=== PATIENT | male | born 1945 ===

== ENCOUNTER → 2018-12-15 | Outpatient (CLI) | payer OTHER ==
[~2018-12-15] MED LIST: ALLER-TEC D 5-1 EACH PO; ARNUITY ELLIPT50 MCG; ASCO500 PO; ASPI325EC PO; COLE625 PO; FOLBIC RF TABL1 EACH; Fiber Tabs625 MG PO; GLUCOSAMINE CH1 EACH PO; GLUCOSAMINE1000 MG PO; HYDMOR2 PO; IBUP600; LIVALO2 MG PO; MAGNESIUM PO; MELO7.5 PO; NAPR500 PO; ONDA4 PO; PROBIOTIC 10 PO; PROBIOTIC1 EAC1; PROM12.5S PO; PSEU30; ROXICODONE5 MG PO; SILD50TA; TAMS.4ER PO; TRAM50 PO; TROSPIUM CHLORI20 MG PO; Zantac150 MG PO; [UNRECOGNIZED DRUG - OTHER]
== END | disposition home or self-care (01) ==
LOC: PLD 12:09 → LAB SHORT 12:09
DX: D36.17 Benign neoplasm of peripheral nerves and autonomic nervous system of trunk, unspecified (principal)
CPT/HCPCS: 88305

== ENCOUNTER 2019-04-29 09:21 | Emergency (ER) | payer OTHER ==
[~2019-04-29] VITALS: Ht 172.7 cm; Wt 86.2 kg
[2019-04-29 09:54] LABS: International Normalized Ratio 0.97; Prothrombin Time Results 10.3 Sec (9.7-11.5)
== END 2019-04-29 09:59 | disposition short-term general hospital (02) ==
LOC: ER 09:21
PROVIDERS: Emergency Medicine
DX: I21.19 ST elevation (STEMI) myocardial infarction involving other coronary artery of inferior wall (principal); Z87.891 Personal history of nicotine dependence; Z79.899 Other long term (current) drug therapy; Z79.891 Long term (current) use of opiate analgesic; E78.5 Hyperlipidemia, unspecified
CPT/HCPCS: 84484; 85610; 85730; 93005; 93010; 99285-25; J2997

== ENCOUNTER 2020-09-27 09:10 | Day surgery (SDC) | payer OTHER ==
[~2020-09-27] VITALS: Ht 175.3 cm; Wt 89.0 kg
[~2020-09-27 09:10] MED LIST changes: +ACID REDUCER PO; +ALLER-TEC PO; +ASPI81CH; +ASPI81CH PO; +Flomax0.4 MG PO; +GAS X PO; +Glucosamine Co1 EAC1 PO; +LIVALO4 MG PO; +METO25ER; +METO25ER PO; +NITR.4SL SL; +OTC PAIN MED PO; +PROBIOTIC PO; +Sanctura20 MG; +Sanctura20 MG PO; +TAMS.4ER; +TUMS500 MG PO
--- NOTE | 2020-09-27 17:48 | NUR ---
SUMMARY PT DENIES ANY PAIN, STATES HAS NUMBNESS BILATERALLY FROM KNEES DOWN, PT IS ABLE TO DO BILAT ANKLE PUMPS AND WIGGLE TOES. LEFT KNEE DRESSING DRY AND INTACT, POLAR PACK IN PLACE. PT ALESSIO REGULAR DIET AND DENIES NAUSEA
--- NOTE | 2020-09-27 20:18 | NUR ---
WILL RE OFFER LATER THIS PM.
[2020-09-28 04:10] LABS: BASOPHILS ABSOLUTE AUTO 0.01 K/mm3 (0.00-0.23); BASOPHILS PERCENT AUTO 0 % (0-2); EOSINOPHILS PERCENT AUTO 0 % (0-6); Hematocrit 39.7 % (37.0-53.0); Hemoglobin 13.2 g/dL (13.5-17.5); IMMATURE GRAN ABSOLUTE AUTO 0.05 K/mm3 (0.00-0.10); IMMATURE GRAN PERCENT AUTO 1 % (0-1); LYMPHOCYTES ABSOLUTE AUTO 0.51 K/mm3 (0.84-5.20); LYMPHOCYTES PERCENT AUTO 5 % (21-46); MONOCYTES ABSOLUTE AUTO 0.51 K/mm3 (0.16-1.47); MONOCYTES PERCENT AUTO 5 % (4-13); Mean Corpuscular HGB 29.3 pg (26.0-34.0); Mean Corpuscular HGB Conc 33.2 g/dL (31.5-36.5); Mean Corpuscular Volume 88 fL (80-100); Mean Platelet Volume 10.6 fL (9.1-12.4); NEUTROPHILS ABSOLUTE AUTO 8.61 K/mm3 (1.96-9.15); NEUTROPHILS PERCENT AUTO 89 % (41-73); Platelet Count 160 K/mm3 (150-400); RDW Coefficient Variation 12.7 % (11.7-14.2); RDW Standard Deviation 41.3 fL (35.1-46.3); White Blood Cell Count 9.69 K/mm3 (4.00-11.30)
[2020-09-28 04:28] LABS: Anion Gap 8 mmol/L (6-16); Blood Urea Nitrogen 22 mg/dL (8-24); Bun/Creatinine Ratio 24.7 (12.0-20.0); CO2, Blood 23 mmol/L (21-32); Calcium, Blood 8.3 mg/dL (8.5-10.1); Chloride, Blood 109 mmol/L (98-108); Creatinine, Blood 0.89 mg/dL (0.60-1.20); Glomerular Filtration Rate >60 (60-); Glucose, Blood 127 mg/dL (70-99); Magnesium, Blood 2.1 mg/dL (1.6-2.4); Potassium, Blood 4.3 mmol/L (3.5-5.5); Sodium, Blood 140 mmol/L (136-145)
--- NOTE | 2020-09-28 04:50 | NUR ---
SHIFT SUMMARY: POD1 L TKA. VSS, NO ACUTE EVENTS OVERNIGHT. TOLERATING PO INTAKE WELL. A&OX4. DRESSING C/D&I. ABIGAIL PRITCHETT, SCDs, AND POLAR PACK IN PLACE. HE IS AMBULATING WITH THE FWW WITH A 1 PERSON STANDBY ASSIST. IV TO R FA PATENT. HE IS SITTING UP IN THE RECLINER WITH THE CALL LIGHT IN REACH. WILL REPORT TO DAY SHIFT RN.
--- NOTE | 2020-09-28 07:34 | NUR ---
DR MARTINEZ HERE TO SEE PT.
[2020-09-28] MEDS ORDERED: ENOX40I SC (10:56)
[2020-09-28] MEDS ORDERED: OXAYDO5 M1 PO (10:57)
[2020-09-28] MEDS ORDERED: SULTRIDS PO (10:57)
--- NOTE | 2020-09-28 13:39 | NUR ---
DISCHARGE: PT EATING AND DRINKING,VOIDING. REPORTS PAIN CONTROLLED ON PO PAIN MEDICATION. PT/FAMILY REPORTS UNDERSTANDING OF DISCHARGE INSTRUCTIONS. PT REPORTS HAVING WALKER ALREADY. PT ABX CALLED IN TO PHARMACY HE REPORTS ONLY HAVING 3 DOSES LEFT. PT REPORTS UNDERSTANDING OF LOVENOX SHOTS, ICE MACHINE, DRESSING CHANGES. PT SENT WITH DRESSING SUPPLIES, ICE MACHINE, AND BELONGINGS. PT BEEN CLEARED BY THERAPY TO GO HOME. DRESSING TO KNEE CONT TO BE WNL.
== END 2020-09-28 13:39 | disposition home or self-care (01) ==
LOC: ORSCMMR 09:10 → ORD 10:45 → ORSCMMR 10:45 → SURS 14:58 → ORSCMMR 09-28 13:39 → SURS 09-28 13:39
PROVIDERS: Orthopaedic Surgery
PROC: 8E0YXBZ Computer Assisted Procedure of Lower Extremity (ICD-10-PCS; principal; 2020-09-27 10:45)
PROC: 0SRD0J9 Replacement of Left Knee Joint with Synthetic Substitute, Cemented, Open Approach (ICD-10-PCS; principal; 2020-09-27 10:45)
DX: M17.12 Unilateral primary osteoarthritis, left knee (principal); E78.5 Hyperlipidemia, unspecified; I25.10 Atherosclerotic heart disease of native coronary artery without angina pectoris; I25.2 Old myocardial infarction; Z79.899 Other long term (current) drug therapy; Z79.82 Long term (current) use of aspirin
CPT/HCPCS: 36415; 73560-LT; 80048; 83735; 85025; 88300; 97110; 97116; 97161; A9270; A9270-GY; C1713; C1776; J0171; J0690; J0735; J1100; J1650; J1885; J2250; J2370; J2405; J2704; J2795; J3010; J3370; J7120

== ENCOUNTER 2021-03-14 06:05 | Day surgery (SDC) | payer OTHER ==
[~2021-03-14] VITALS: Ht 175.3 cm; Wt 94.0 kg
[~2021-03-14 06:05] MED LIST changes: +ENOX40I SC; +OXAYDO5 M1 PO; +SULTRIDS PO; +XARELTO20 MG PO
--- NOTE | 2021-03-14 09:34 | NUR ---
PATIENT RETURNED FORM [facility]ATH[facility] WITH LONG SHEATH AND NAVICROSS CATHETER IN PLACE. AWAITING PHARMACY TO SEND TPA GTT ADN HEPARIN GTT TO THE BEDSIDE ORDERED TO INFUSE AND THEN PATIENT TO RETURN TO THE CATHLAB LATER TODAY TO COMPLETE THE INTERVENTION TO THE RIGHT ARM (ULNAR). PATIENT PLACED ON THE MONITOR AND CALL IGHT IN REACH. VVS. NO PAIN AT THIS TIME. RIGHT FEMORAL SITE CDI, DRESSING IN PLACE AND PEDAL PULSE +1. ATTEMPTED TO CALL THE , NO ANSWER
--- NOTE | 2021-03-14 09:56 | NUR ---
TPA GTT STARTED TO THE NAVICROSS CATHETER AT 50 ML/HR AND HEPARIN GTT AT 10 ML/HR = 500 UNITS/HR. TWO NURSE VERIFICATION PERFORMED AT THE BEDSIDE.
--- NOTE | 2021-03-14 10:40 | NUR ---
PT SLEEPING, ROUSES EASILY TO VERBAL STIMULI. VSS, CALL LIGHT IN REACH. RIGHT GROIN SITE REMAINS SOFT AND NON-TENDER. TPA AND HEPARIN CONTINUE TO INFUSE PER ORDERS. RIGHT FINGERTIPS PINK AND WARM.
--- NOTE | 2021-03-14 11:58 | NUR ---
PATIENT AWAKE, VOIDED, CALLED ON THE PHONE. HOB UP 15 DEGREES. RIGHT GROIN SITE UNCHANGED. HEPARIN GTT AND TPA INFUSING ORDERED. CALL LIGHT IN REACH.
--- NOTE | 2021-03-14 12:20 | NUR ---
TPA INFUSION SHOWING OCCLUSION. TRACED LINE BACK AND CHECKED THE NAVICROSS CATHETER. CATHETER FLUSHES BUT HARD TO FLUSH. RIGHT HAND BLANCHES WITH SALINE FLUSHES. NOTIFIED DR. ESTRADA OF POSSIBLE CATHETER OCCLUSION AND UNABLE TO CURRENTLY RUN THE TPA. HEPARIN GTT STILL TO THE SIDEPORT OF THE SHEATH. HAND PAINFUL TO TOUCH. FAINT CAPILLARY REFILL NOTED.
--- NOTE | 2021-03-14 12:47 | NUR ---
right groin site stable, right hand warm and pink TPA and heparin infusing through right groin as per Dr order.
--- NOTE | 2021-03-14 14:25 | NUR ---
1420 PATIENT DISCONNECTED FROM THE TPA AND HEPARIN GTT AND TAKEN BACK TO THE CATHLAB.
--- NOTE | 2021-03-14 15:05 | NUR ---
PT TO RECOVERY ROOM POST PROCEDURE. PT AWAKE AND CONVERSING APPROPRIATELY; DENIES PAIN POST PROCEUDRE. MONITOR SB WITH IVCD 50'S, B/P 127/76, AFEBRILE, SPO2 95% RA. R GROIN NO SWELLING/HEMATOMA, TEGADERM DRSG INTACT; ANGIO SEAL DEPLOYED, PULSES RLE 2+ X 2. PT'S R HAND WARM WITH STRONG RADIAL PULSE AND POSITIVE PLEUTH POST PROCEDURE.
--- NOTE | 2021-03-14 17:18 | NUR ---
PT'S HOB ELEVATED, SITE UNCHANGED.
--- NOTE | 2021-03-14 17:20 | NUR ---
PT AMB TO BATHROOM, GAIT STEADY; VOIDED QS, SITE UNCHANGED WITH ACTVITY.
--- NOTE | 2021-03-14 17:30 | NUR ---
PT DRESSED SELF WITHOUT ISSUE, SITE UNCHANGED; IV REMOVED-CANNULA INTACT.
--- NOTE | 2021-03-14 17:40 | NUR ---
PT RECEIVED DISCHARGE INSTRUCTIONS, MED LIST AND AFTER CARE INSTRUCTIONS; VERBALIZED GOOD UNDERSTANDING. PT LEFT FACILITY VIA W/C, CONDITION STABLE.
== END 2021-03-14 22:49 | disposition home or self-care (01) ==
LOC: MHTC 06:05
DX: I73.9 Peripheral vascular disease, unspecified (principal); I25.10 Atherosclerotic heart disease of native coronary artery without angina pectoris; Z79.899 Other long term (current) drug therapy; Z20.822 Contact with and (suspected) exposure to COVID-19
CPT/HCPCS: 99152; 99153; C1757; C1760; C1769; C1887; C1894; J1644; J2250; J2997; J3010; J7030; J7040; J7050; Q9967

== ENCOUNTER 2021-03-22 20:24 | Emergency (ER) | payer OTHER ==
[~2021-03-22] VITALS: Ht 175.3 cm; Wt 89.8 kg
[2021-03-22] MEDS ORDERED: TROSPIUM CHLORI20 M1 PO (21:03)
[2021-03-22 22:44] LABS: BASOPHILS ABSOLUTE AUTO 0.01 K/mm3 (0.00-0.23); BASOPHILS PERCENT AUTO 0 % (0-2); EOSINOPHILS ABSOLUTE AUTO 0.15 K/mm3 (0.00-0.68); EOSINOPHILS PERCENT AUTO 2 % (0-6); Hematocrit 39.9 % (37.0-53.0); Hemoglobin 13.3 g/dL (13.5-17.5); IMMATURE GRAN ABSOLUTE AUTO 0.03 K/mm3 (0.00-0.10); IMMATURE GRAN PERCENT AUTO 0 % (0-1); LYMPHOCYTES ABSOLUTE AUTO 1.22 K/mm3 (0.84-5.20); LYMPHOCYTES PERCENT AUTO 17 % (21-46); MONOCYTES ABSOLUTE AUTO 0.53 K/mm3 (0.16-1.47); MONOCYTES PERCENT AUTO 7 % (4-13); Mean Corpuscular HGB 29.4 pg (26.0-34.0); Mean Corpuscular HGB Conc 33.3 g/dL (31.5-36.5); Mean Corpuscular Volume 88 fL (80-100); Mean Platelet Volume 11.2 fL (9.1-12.4); NEUTROPHILS ABSOLUTE AUTO 5.42 K/mm3 (1.96-9.15); NEUTROPHILS PERCENT AUTO 74 % (41-73); Platelet Count 186 K/mm3 (150-400); RDW Coefficient Variation 13.4 % (11.7-14.2); RDW Standard Deviation 43.5 fL (35.1-46.3); Red Blood Cell Count 4.52 M/mm3 (4.30-5.90); White Blood Cell Count 7.36 K/mm3 (4.00-11.30)
[2021-03-22 22:56] LABS: Alanine Aminotransfer (ALT/SGP 31 U/L (12-78); Albumin/Globulin Ratio 1.2 (0.8-1.8); Alk Phos 91 U/L (50-136); Anion Gap 4 mmol/L (6-16); Aspartate Aminotrans (AST/SGOT 24 U/L (12-37); Bilirubin, Total 0.5 mg/dL (0.1-1.0); Blood Urea Nitrogen 21 mg/dL (8-24); Bun/Creatinine Ratio 23.9 (12.0-20.0); CO2, Blood 27 mmol/L (21-32); Calcium, Blood 9.1 mg/dL (8.5-10.1); Chloride, Blood 112 mmol/L (98-108); Creatinine, Blood 0.88 mg/dL (0.60-1.20); Globulin, Blood 3.2 g/dL (2.2-4.0); Glomerular Filtration Rate >60 (60-); Glucose, Blood 101 mg/dL (70-99); Sodium, Blood 143 mmol/L (136-145); Total Protein, Blood 7.2 g/dL (6.4-8.2)
== END 2021-03-23 01:54 | disposition home or self-care (01) ==
LOC: ER 20:24
PROVIDERS: Student in an Organized Health Care Education/Training Program
DX: S30.0XXA Contusion of lower back and pelvis, initial encounter (principal); Z79.82 Long term (current) use of aspirin; Z79.899 Other long term (current) drug therapy; Z79.01 Long term (current) use of anticoagulants; W11.XXXA Fall on and from ladder, initial encounter
CPT/HCPCS: 36415; 74177; 80053; 85025; 96374-59; 96375; 99284-25; A9270; A9270-GY; J1885; J3010; Q9967